=== PATIENT | female | born 1940 | race Caucasian/White ===

== ENCOUNTER 2021-10-24 22:22 | Emergency (ER) | payer MEDICARE ==
--- NOTE | 2021-10-24 22:28 | ERPHSYRPT ---
- History of Present Illness Time Seen by Provider: 10/24/21 22:28 Historian: patient, family Exam Limitations: no limitations Physician History: This is an 81-year-old white female patient of Dr. Boyer who is a type II diabetic and presents with vomiting complaint. 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 She has had an esophageal dilatation in the past because of food bolus in the esophagus. The patient presents with a history today of waking up and having her usual breakfast of oatmeal and tolerating that well. Approximately 11:30 AM patient did consume sausage. Since that time, the patient has been unable to hold anything down. She is "vomiting" clear sputum and not food or gastric content per patient and family report. Patient is tolerating her secretions and breathing well. She has no nausea. She has no abdominal pain. Activities at Onset: none Severity of Pain-Max: none Severity of Pain-Current: none Modifying Factors: Improves With: vomiting, other (Unable to tolerate oral intake) Previous symptoms: same symptoms as today, no recent treatment Allergies/Adverse Reactions: No Known Drug Allergies Allergy (Verified 10/24/21 22:23) Home Medications: Atorvastatin Calcium 20 mg PO DAILY 10/25/21 [History] Metformin HCl 500 mg [Glucophage 500 MG] 500 mg PO BID 10/25/21 [History] Omeprazole 20 mg PO DAILY 10/25/21 [History] Verapamil HCl [Verapamil Sr] 240 mg PO HS 10/25/21 [History] cloNIDine HCL [Clonidine HCl] 0.3 mg PO TID 10/25/21 [History] lisinopriL [Lisinopril] 40 mg PO DAILY 10/25/21 [History] Travel Risk - International Travel Have you traveled outside of the country in past 3 weeks: No - Coronavirus Screening Are you exhibiting any of the following symptoms?: No Close contact with a COVID-19 positive Pt in past 14-21 Days: No - Review of Systems Constitutional: No Symptoms Eyes: No Symptoms Ears, Nose, & Throat: No Symptoms Respiratory: No Symptoms Cardiac: No Symptoms Abdominal/Gastrointestinal: Vomiting, No Abdominal Pain, No Nausea Genitourinary Symptoms: Incontinence Musculoskeletal: No Symptoms Skin: No Symptoms Neurological: No Symptoms Psychological: No Symptoms Endocrine: No Symptoms Hematologic/Lymphatic: No Symptoms Immunological/Allergic: No Symptoms All Other Systems: Reviewed and Negative - Past Medical History Neurological History: No Pertinent History ENT History: Cataracts Cardiac History: Hypertension Respiratory History: No Pertinent History Endocrine Medical History: Diabetes Type II Musculoskeletal History: Fractures GI Medical History: No Pertinent History, Ulcer History: No Pertinent History Psycho-Social History: No Pertinent History Female Reproductive Disorders: No Pertinent History Other Medical History: left hip fracture, left hip replaced, right hip has hardware as well. - Past Surgical History Past Surgical History: Yes Neuro Surgical History: No Pertinent History Cardiac: No Pertinent History Respiratory: No Pertinent History Gastrointestinal: No Pertinent History Genitourinary: No Pertinent History Musculoskeletal: Joint Replacement, Other Female Surgical History: Section Other Surgical History: left hip replaced and hardware in right hip - Social History Smoking Status: Former smoker Exposure to second hand smoke: No Drug Use: none - Nursing Vital Signs Nursing Vital Signs: Initial Vital Signs Temperature 97.5 F 10/24/21 22:27 Pulse Rate 94 H 10/24/21 22:27 Respiratory Rate 18 10/24/21 22:27 Blood Pressure 230/115 10/24/21 22:27 O2 Sat by Pulse Oximetry 100 10/24/21 22:27 Pain Scale Pain Intensity 0 - Physical Exam General Appearance: no apparent distress, alert, anxiety Eye Exam: PERRL/EOMI, eyes nml inspection Ears, Nose, Throat Exam: normal ENT inspection, moist mucous membranes Neck Exam: normal inspection, non-tender, supple, full range of motion Respiratory Exam: normal breath sounds, lungs clear, airway intact, No chest tenderness, No respiratory distress Cardiovascular Exam: regular rate/rhythm, normal heart sounds, normal peripheral pulses Gastrointestinal/Abdomen Exam: soft, normal bowel sounds, No tenderness Pelvic Exam: not done Rectal Exam: not done Back Exam: normal inspection, normal range of motion, No CVA tenderness, No vertebral tenderness Extremity Exam: normal inspection, normal range of motion, pelvis stable Neurologic Exam: alert, oriented x 3, cooperative, block mason II-XII nml as tested, normal mood/affect, nml cerebellar function, nml station & gait, sensation nml Skin Exam: normal color, warm, dry Lymphatic Exam: No adenopathy SpO2 Interpretation: normal O2 Delivery: Room Air - Course Nursing assessment & vital signs reviewed: Yes Ordered Tests: Active Orders 24 hr Category Date Time Status IV Insertion STAT Care 10/24/21 22:46 Active ABDOMEN AND PELVIS W/0 CONTRAS [CT] Stat Exams 10/24/21 22:46 Taken CHEST WITHOUT CONTRAST [CT] Stat Exams 10/24/21 22:46 Taken AMYLASE Stat Lab 10/24/21 22:46 Completed CBC W DIFF Stat Lab 10/24/21 22:46 Completed CMP Stat Lab 10/24/21 22:46 Completed LIPASE Stat Lab 10/24/21 22:46 Completed UA W/RFX CULTURE Stat Lab 10/25/21 00:49 Completed Medication Summary Discontinued Medications Generic Name Dose Route Start Last Admin Trade Name Sammyq PRN Reason Stop Dose Admin Sodium Chloride 1,000 mls @ 999 mls/hr 10/24/21 22:46 10/25/21 00:39 Sodium Chloride 0.9% 1000 Ml IV 10/24/21 23:46 Infused .Q1H1M STA Infusion Sodium Chloride Confirm 10/24/21 23:15 Sodium Chloride 0.9% 1000 Ml Administered 10/24/21 23:16 Dose 1,000 mls @ ud .ROUTE .[facility] Lab/Rad Data: Laboratory Result Diagrams 10/24/21 22:46 10/24/21 22:46 Laboratory Results 10/25/21 10/24/21 10/24/21 Range/Units 00:49 22:46 22:46 WBC 6.8 (4.0-10.5) x10^3/uL RBC 4.73 (4.1-5.4) x10^6/uL Hgb 10.8 L (12.0-16.0) g/dL Hct 36.0 (35-47) % MCV 76.1 L (78-100) fL MCH 22.8 L (26-32) pg MCHC 30.0 L (32-36) g/dL RDW 17.4 H (11.5-14.0) % Plt Count 240 (150-450) x10^3/uL MPV 10.2 (7.5-11.0) fL Gran % 60.9 (36.0-66.0) % Immature Gran % (Auto) 0.3 (0.00-0.4) % Nucleat RBC Rel Count 0.0 (0.00-0.1) % Eos # (Auto) 0.15 (0-0.5) x10^3/uL Immature Gran # (Auto) 0.02 (0.00-0.03) x10^3u/L Absolute Lymphs (auto) 1.68 (1.0-4.6) x10^3/uL Absolute Monos (auto) 0.76 (0.0-1.3) x10^3/uL Absolute Nucleated RBC 0.00 (0.00-0.01) x10^3u/L Lymphocytes % 24.7 (24.0-44.0) % Monocytes % 11.2 (0.0-12.0) % Eosinophils % 2.2 (0.00-5.0) % Basophils % 0.7 (0.0-0.4) % Absolute Granulocytes 4.15 (1.4-6.9) x10^3/uL Basophils # 0.05 (0-0.4) x10^3/uL Sodium 137 (137-145) mmol/L Potassium 4.1 (3.5-5.1) mmol/L Chloride 101 (98-107) mmol/L Carbon Dioxide 26 (22-30) mmol/L Anion Gap 13.7 (5-15) MEQ/L BUN 15 (7-17) mg/dL Creatinine 0.80 (0.52-1.04) mg/dL Estimated GFR > 60.0 ML/MIN Glucose 164 H (74-106) mg/dL Calcium 9.6 (8.4-10.2) mg/dL Total Bilirubin 1.00 (0.2-1.3) mg/dL AST 20 (14-36) U/L ALT 16 (0-35) U/L Alkaline Phosphatase 71 (38-126) U/L Serum Total Protein 7.3 (6.3-8.2) g/dL Albumin 4.2 (3.5-5.0) g/dL Amylase 88 (30-110) U/L Lipase 160 (23-300) U/L Urinalys Dipstick Clnc MAIN LAB Urine Color YELLOW (YELLOW) Urine Appearance CLEAR (CLEAR) Urine pH 6.0 (5-6) Ur Specific [place] 1.010 (1.005-1.025) POC Urine Protein Conf NEGATIVE (Negative) Urine Ketones SMALL-15 (NEGATIVE) Urine Nitrite NEGATIVE (NEGATIVE) Urine Bilirubin NEGATIVE (NEGATIVE) Urine Urobilinogen 0.2 (0-1) mg/dL Urine Leukocytes SMALL (NEGATIVE) Urine WBC (Auto) 6-10 (0-5) /HPF Urine RBC (Auto) NONE (0-2) /HPF U Epithel Cells (Auto) NONE (FEW) /HPF Urine Bacteria (Auto) NONE (NEGATIVE) /HPF Urine RBC NEGATIVE (0-5) Sarthak/ul Ur Culture Indicated? NO Urine Glucose NEGATIVE (NEGATIVE) mg/dL - Progress Progress Note: 10/25/21 01:32 CAT scan of the abdomen and pelvis without contrast shows a large paraesophageal hernia with concern for a thoracic gastric volvulus. CAT scan of the chest without contrast shows a large paraesophageal hernia with concern for thoracic gastric volvulus. There is an airfluid in the esophagus. Medical decision making: I spoke with general surgeon Dr. Griffin Welsh and reviewed the patient history, physical findings, radiographic and laboratory results. The patient has been accepted at [facility] and we do have a room for her. I discussed the ideal situation with the patient and her son about transfer of patient to [facility] via ambulance service. They are declining that method of transportation and the son will take her mother there via private vehicle. The risk were discussed with the patient and the son. They are declining ambulance transportation. Discussed with Dr.: Other (Dr. Griffin Welsh) Counseled pt/family regarding: lab results, diagnosis, rad results - Departure Departure Disposition: Transfer Clinical Impression: Paraesophageal hernia, Gastric volvulus, Vomiting Condition: Stable Critical Care Time: No Referrals: NICKI BOYER, [Primary Care Provider] - Follow up/PCP as directed
[2021-10-24] MEDS ORDERED: Sodium Chloride 0.9% 1000 ML 1,000 ML IV STA (22:46)
[2021-10-24] MEDS ORDERED: Sodium Chloride 0.9% 1000 ML 1,000 ML ONE (23:15)
[2021-10-24 23:24] LABS: Absolute Neutrophil Ct (ANC) 4.15 x10^3/uL (1.4-6.9); Basophil (Absolute #) 0.05 x10^3/uL (0-0.4); Eosinophil % 2.2 % (0.00-5.0); Eosinophil (Absolute #) 0.15 x10^3/uL (0-0.5); Hemoglobin 10.8 g/dL (12.0-16.0); Lymphocyte (Absolute #) 1.68 x10^3/uL (1.0-4.6); Lymphocytes % 24.7 % (24.0-44.0); Mean Cell Volume 76.1 fL (78-100); Mean Corpuscular Hemoglobin 22.8 pg (26-32); Mean Platelet Volume 10.2 fL (7.5-11.0); Monocyte (Absolute #) 0.76 x10^3/uL (0.0-1.3); Monocytes % 11.2 % (0.0-12.0); Neutrophil % 60.9 % (36.0-66.0); Platelet Count 240 x10^3/uL (150-450); Red Blood Count 4.73 x10^6/uL (4.1-5.4); Red Cell Distribution Width 17.4 % (11.5-14.0); White Blood Count 6.8 x10^3/uL (4.0-10.5)
[2021-10-24 23:36] LABS: ALBUMIN 4.2 g/dL (3.5-5.0); ALKALINE PHOSPHATASE 71 U/L (38-126); AMYLASE 88 U/L (30-110); ANION GAP 13.7 MEQ/L (5-15); BLOOD UREA NITROGEN 15 mg/dL (7-17); CHLORIDE 101 mmol/L (98-107); Calcium 9.6 mg/dL (8.4-10.2); Carbon Dioxide 26 mmol/L (22-30); EST GLOMERULAR FILTRATION RATE > 60.0 ML/MIN; Glucose 164 mg/dL (74-106); LIPASE 160 U/L (23-300); Potassium 4.1 mmol/L (3.5-5.1); SGOT/AST 20 U/L (14-36); SGPT/ALT 16 U/L (0-35); SODIUM 137 mmol/L (137-145); Total Protein 7.3 g/dL (6.3-8.2)
[2021-10-25 01:13] LABS: Appearance CLEAR (CLEAR); Bilirubin NEGATIVE (NEGATIVE); Glucose NEGATIVE (NEGATIVE); Ketones SMALL-15 (NEGATIVE)
[2021-10-25 01:14] LABS: Dipstick done @ ? MAIN LAB; Nitrite NEGATIVE (NEGATIVE); Protein,Urine Dip NEGATIVE (Negative); RBC NEGATIVE Ery/ul (0-5); Urobilinogen 0.2 mg/dL (0-1)
[2021-10-25 01:16] LABS: Urine Cultured Indicated? NO
[2021-10-25 01:31] VITALS: BP 189/94; PULSE 101; O2SAT 93
--- NOTE | 2021-10-25 07:48 | XRAY ---
Indication: Vomiting. Esophageal food bolus. History esophageal ulcers with esophageal dilatation. Multiple contiguous axial images obtained through the chest without contrast. Comparison: None Lungs demonstrates minimal bilateral dependent atelectasis and a few tiny bilateral calcified granulomas. No suspicious pulmonary mass, infiltrate, effusion, or pneumothorax. Heart not enlarged. Aorta mildly arteriosclerotic without aneurysm. Tiny right hilar and subcarinal calcified nodes. No pathologic mediastinal lymphadenopathy. Moderate-sized hiatal hernia with partial intrathoracic stomach. Intrathoracic stomach demonstrates metallic intraluminal density presumed iatrogenic. Mid to proximal esophagus is moderately fluid distended presumed from gastroesophageal reflux. Bony thorax intact with mild osteopenia, minimal degenerative changes to the spine, and remote T12 superior endplate fracture with approximately 25% height loss. CT abdomen/pelvis reported separately. Impression: 1. Hiatal hernia with partial intrathoracic stomach and GERD. 2. Chronic bony findings and old granulomatous disease. 3. Remaining CT chest without contrast exam is negative. Comment: Preliminary interpretation made by C. No critical discrepancy.
--- NOTE | 2021-10-25 07:50 | XRAY ---
Indication: Vomiting. Esophageal food bolus. History esophageal ulcers with esophageal dilatation. Multiple contiguous axial images obtained through the abdomen and pelvis without contrast. Comparison: None CT chest reported separately. Left total hip arthroplasty and proximal right femur orthopedic fixation hardware produces beam artifact. Noncontrasted stomach and bowel loops appear nonobstructed with normal appendix. Mild scattered descending and sigmoid diverticulosis without diverticulitis. Moderate diffuse scattered colonic fecal debris throughout. At least 2 gallstones, largest 2.6 cm. No free fluid/air. Remaining liver, pancreas, spleen, adrenal glands, kidneys, ureters, and bladder are unremarkable for noncontrast exam. Mild scattered aortoiliac calcifications without AAA. Remaining osseous structures demonstrates mild osteopenia, mild levoscoliosis centered at L3, and remote T12/L1 compression fractures. Impression: 1. Diffuse fecal stasis and colonic diverticulosis. 2. Cholelithiasis. 3. Arteriosclerotic disease and chronic bony findings Comment: Preliminary interpretation made by [facility]. No critical discrepancy.
== END 2021-10-25 01:56 | disposition short-term general hospital (02) ==
LOC: ED 22:22
DX: K44.9 Diaphragmatic hernia without obstruction or gangrene (principal); K31.89 Other diseases of stomach and duodenum; R11.10 Vomiting, unspecified; E11.9 Type 2 diabetes mellitus without complications; I10 Essential (primary) hypertension; Z79.84 Long term (current) use of oral hypoglycemic drugs; Z79.899 Other long term (current) drug therapy
CPT/HCPCS: 36000; 36415; 71250; 74176; 80053; 81015; 82150; 83690; 85025; 96360; 99285

== ENCOUNTER 2023-03-11 18:14 | Emergency (ER) | payer MEDICARE ==
[2023-03-11 18:32] VITALS: TEMP 97.8
--- NOTE | 2023-03-11 19:00 | ERPHSYRPT ---
- History of Present Illness Time Seen by Provider: 03/11/23 18:52 Source: patient Exam Limitations: no limitations Patient Subjective Stated Complaint: Pt states "I had an ultrasound today and I have a clot in my left leg [facility] down and they prescribed me eliquis and no one has it anywhere near here. they said they could have it by tuesday and when we called the assembler production line he said I should not wait that long and to come here." Triage Nursing Assessment: Pt presented alert and oriented X 3, skin pwd. Pt ambulates with a slow gait with a cane. Pt left leg slightly swollen. no apparent respiratory distress noted Physician History: Patient had a ultrasound of the left lower extremity which showed multiple partially obstructing pulmonary emboli she was given a prescription for Eliquis starting pack which could not be filled in [place]. Consequently she was sent to the ER to start her medical regimen. She denies any pain she says its only swollen. Timing/Duration: today Severity: moderate Modifying Factors: Improves With: movement Associated Symptoms: denies symptoms Allergies/Adverse Reactions: No Known Drug Allergies Allergy (Verified 02/26/22 09:57) Home Medications: Atorvastatin Calcium 20 mg PO DAILY 10/25/21 [History] Omeprazole 20 mg PO DAILY 10/25/21 [History] Verapamil HCl [Verapamil Sr] 240 mg PO HS 10/25/21 [History] cloNIDine HCL [Clonidine HCl] 0.3 mg PO TID 10/25/21 [History] Carvedilol [Coreg ] 6.25 mg PO BID 03/04/23 [History] Cholecalciferol (Vitamin D3) [Vitamin D3] 2,000 unit PO DAILY 03/04/23 [History] Cider Vinegar [Apple Cider Vinegar] 300 mg PO DAILY 03/04/23 [History] Iron,Carbonyl [Feosol] 45 mg PO DAILY 03/04/23 [History] Linagliptin/Metformin HCl [Jentadueto 2.5 mg-1000 mg Tab] 1 each PO DAILY 03/04/23 [History] Losartan Potassium 50 mg [Cozaar 50 MG] 50 mg PO DAILY 03/04/23 [History] Multivit-Min36/Iron/Folic Acid [Geritol Complete Tablet] 1 each PO DAILY 03/04/23 [History] Triamterene/Hydrochlorothiazid [Triamterene-Hctz 37.5-25 mg Tb] 1 each PO DAILY 03/04/23 [History] Vit A/Vit C/Vit E/Zinc/Copper [Preservision Areds Softgel] 1 each PO DAILY 03/04/23 [History] Hx Tetanus, Diphtheria Vaccination/Date Given: No (unknown) Hx Influenza Vaccination/Date Given: Yes Hx Pneumococcal Vaccination/Date Given: Yes Immunizations Up to Date: Yes Travel Risk - International Travel Have you traveled outside of the country in past 3 weeks: No - Coronavirus Screening Are you exhibiting any of the following symptoms?: No Close contact with a COVID-19 positive Pt in past 14-21 Days: No - Vaccine Status Have you recieved a Covid-19 vaccination: Yes Keno Attendant: Unknown - Vaccination Dates Dates if Unknown: 06/30 - Review of Systems Constitutional: No Fever, No Chills Eyes: No Symptoms Ears, Nose, & Throat: No Symptoms Respiratory: No Cough, No Dyspnea Cardiac: Edema, No Chest Pain, No Syncope Abdominal/Gastrointestinal: No Abdominal Pain, No Nausea, No Vomiting, No Diarrhea Genitourinary Symptoms: No Dysuria Musculoskeletal: No Back Pain, No Neck Pain Skin: No Rash Neurological: No Dizziness, No Focal Weakness, No Sensory Changes Psychological: No Symptoms Endocrine: No Symptoms All Other Systems: Reviewed and Negative - Past Medical History Pertinent Past Medical History: Yes Neurological History: No Pertinent History ENT History: Cataracts Cardiac History: Hypertension Respiratory History: No Pertinent History Endocrine Medical History: Diabetes Type II Musculoskeletal History: Fractures, Osteoporosis GI Medical History: Ulcer History: No Pertinent History Psycho-Social History: No Pertinent History Female Reproductive Disorders: No Pertinent History Other Medical History: left hip fracture, left hip replaced, right hip has hardware as well. - Past Surgical History Past Surgical History: Yes Neuro Surgical History: No Pertinent History Cardiac: No Pertinent History Respiratory: No Pertinent History Gastrointestinal: No Pertinent History Genitourinary: No Pertinent History Musculoskeletal: Joint Replacement, Other Female Surgical History: Hysterectomy, Section Other Surgical History: left hip replaced and hardware in right hip - Social History Smoking Status: Never smoker Exposure to second hand smoke: No Drug Use: none Patient Lives Alone: Yes - Nursing Vital Signs Nursing Vital Signs: Initial Vital Signs Temperature 97.8 F 03/11/23 18:24 Pulse Rate 98 H 03/11/23 18:24 Respiratory Rate 18 03/11/23 18:24 O2 Sat by Pulse Oximetry 99 03/11/23 18:24 Pain Scale Pain Intensity 0 - Physical Exam General Appearance: no apparent distress, alert Eye Exam: PERRL/EOMI, eyes nml inspection Ears, Nose, Throat Exam: normal ENT inspection, TMs normal, pharynx normal, moist mucous membranes Neck Exam: normal inspection, non-tender, supple, full range of motion Respiratory Exam: normal breath sounds, lungs clear, No respiratory distress Cardiovascular Exam: regular rate/rhythm, normal heart sounds, normal peripheral pulses Gastrointestinal/Abdomen Exam: soft, normal bowel sounds, No tenderness, No mass Back Exam: normal inspection, normal range of motion, No CVA tenderness, No vertebral tenderness Extremity Exam: normal inspection, normal range of motion, pelvis stable Neurologic Exam: alert, oriented x 3, cooperative, normal mood/affect, nml cerebellar function, nml station & gait, sensation nml, No motor deficits Skin Exam: normal color, warm, dry, No rash Lymphatic Exam: No adenopathy SpO2: 99 - Course Nursing assessment & vital signs reviewed: Yes - Progress Progress: unchanged Medical Desision Making - Diagnostic Testing Diagnostic test were ordered, analyzed, and reviewed by me: No - Departure Departure Disposition: Home Clinical Impression: DVT (deep venous thrombosis) Condition: Stable Critical Care Time: No Referrals: BHUPINDER DAVEY DO [Primary Care Provider] - Follow up/PCP as directed Prescriptions: Apixaban [Eliquis] 10 mg PO BID 3 Days #12 ml
[2023-03-11] MEDS ORDERED: ELIQUIS 2.5 MG TABLET ONE (19:02)
[2023-03-11 19:12] VITALS: BP 186/94; PULSE 92; RESP 20; O2SAT 94
[2023-03-11] MEDS ORDERED: ELIQUIS 2.5 MG TABLET PO SCH (22:00)
== END 2023-03-11 19:21 | disposition home or self-care (01) ==
LOC: ED 18:14
DX: I82.402 Acute embolism and thrombosis of unspecified deep veins of left lower extremity (principal); I10 Essential (primary) hypertension; E11.9 Type 2 diabetes mellitus without complications; Z79.84 Long term (current) use of oral hypoglycemic drugs; Z79.01 Long term (current) use of anticoagulants; Z79.899 Other long term (current) drug therapy
CPT/HCPCS: 99281; A9270-GY